=== PATIENT | male | born 1955 | race Caucasian/White ===

== ENCOUNTER 2022-06-18 08:35 | Outpatient (CLI) | payer MEDICARE, OTHER | END 2022-06-18 08:36 | disposition home or self-care (01) | LOC: CSHRAD 08:35 | PROVIDERS: ATTEND Otolaryngology Plastic Surgery within the Head & Neck | DX: E07.9 Disorder of thyroid, unspecified (principal) | CPT/HCPCS: 93005; 93010 ==